=== PATIENT | female | born 1995 | race Caucasian/White ===

== ENCOUNTER 2017-11-08 20:06 | Emergency (ER) | payer SELFPAY ==
--- NOTE | 2017-11-08 22:03 | ER Document Report ---
ED General - General Chief Complaint: Flu Symptoms Stated Complaint: FLU LIKE SYMPTOMS Time Seen by Provider: 11/08/17 21:54 Mode of Arrival: Ambulatory Information source: Patient Notes: 22-year-old female presents to ED as abdominal pain sharp going around to the back. She states she is 21 weeks due March 18 but she has not been to the doctor. Labor and delivery were called they stated we would need to get a definite due date by ultrasound and please get a flu test before sending her up. Ultrasound was called they will call us in about 5 minutes when they are finished with shift change to have the patient go to ultrasound. Flu and hCG will be obtained in the meantime. TRAVEL OUTSIDE OF THE [place] IN LAST 30 DAYS: No - HPI Onset: Other - Abdominal pain is been for about the last hour Onset/Duration: Gradual Quality of pain: Cramping, Sharp Pain Level: 3 Associated symptoms: Body/muscle aches, Nonproductive cough, Fever, Headache, Other - Abdominal pain wrapping around to the back she is 21 weeks Exacerbated by: Movement Relieved by: Denies Similar symptoms previously: Yes Recently seen / treated by doctor: No - Related Data Allergies/Adverse Reactions: amoxicillin Allergy (Verified 11/09/17 00:23) Past Medical History - General Information source: Patient - Social History Smoking Status: Current Every Day Smoker Cigarette use (# per day): Yes - 2- 3 cigarettes a day Chew tobacco use (# tins/day): No Smoking Education Provided: Yes - 4 minutes Frequency of alcohol use: None Drug Abuse: None Lives with: Family Family History: Reviewed & Not Pertinent Patient has suicidal ideation: No Patient has homicidal ideation: No - Past Medical History Cardiac Medical History: Reports: None Pulmonary Medical History: Reports: None EENT Medical History: Reports: None Neurological Medical History: Reports: None Endocrine Medical History: Reports: None Renal/ Medical History: Reports: None Malignancy Medical History: Reports: None GI Medical History: Reports: None Musculoskeltal Medical History: Reports None Skin Medical History: Reports None Psychiatric Medical History: Reports: None Traumatic Medical History: Reports: None Infectious Medical History: Reports: None Past Surgical History: Reports: Hx Adenoidectomy, Hx Oral Surgery, Hx Tonsillectomy - Immunizations Immunizations up to date: Yes Hx Diphtheria, Pertussis, Tetanus Vaccination: Yes Review of Systems - Review of Systems Constitutional: Fever, Recent illness EENT: Nose congestion, Nose discharge, Sinus pressure, Sinus discharge Cardiovascular: No symptoms reported Respiratory: Cough Gastrointestinal: Abdominal pain - She states any 1 weeks Genitourinary: No symptoms reported Female Genitourinary: No symptoms reported Musculoskeletal: Muscle pain - Lower abdominal pain wrapping around to her back she is 21 weeks Skin: No symptoms reported Hematologic/Lymphatic: No symptoms reported Neurological/Psychological: No symptoms reported -: Yes All other systems reviewed and negative Physical Exam - Vital signs Vitals: Temp Pulse Resp BP Pulse Ox 99.0 F 104 H 14 125/66 99 11/08/17 20:39 11/08/17 20:39 11/08/17 20:39 11/08/17 20:39 11/08/17 20:39 Interpretation: Normal - General General appearance: Appears well, Alert - HEENT Head: Normocephalic, Atraumatic Eyes: Normal Pupils: PERRL - Respiratory Respiratory status: No respiratory distress Chest status: Nontender Breath sounds: Normal Chest palpation: Normal - Cardiovascular Rhythm: Regular Heart sounds: Normal auscultation Murmur: No - Abdominal Inspection: Normal Distension: No distension Bowel sounds: Normal Tenderness: Tender - Lower half of the abdomen and lower back Organomegaly: No organomegaly - Back Back: Normal, Nontender - Extremities General upper extremity: Normal inspection, Nontender, Normal color, Normal ROM , Normal temperature General lower extremity: Normal inspection, Nontender, Normal color, Normal ROM , Normal temperature, Normal weight bearing. No: Zaheer's sign - Neurological Neuro grossly intact: Yes Cognition: Normal Orientation: AAOx4 [place] Coma Scale Eye Opening: Spontaneous Denise Coma Scale Verbal: Oriented [place] Coma Scale Motor: Obeys Commands [place] Coma Scale Total: 15 Speech: Normal Motor strength normal: LUE, RUE, LLE, RLE Sensory: Normal - Psychological Associated symptoms: Normal affect, Normal mood - Skin Skin Temperature: Warm Skin Moisture: Dry Skin Color: Normal Course - Re-evaluation Re-evalutation: 11/08/17 22:03 Flu and hCG are being sent to the lab patient will be sent to ultrasound as soon as they are available for definitive age. Labor and delivery will be called when we receive the gestational age and patient will be discharged and sent up to labor and delivery. - Vital Signs Vital signs: Temp Pulse Resp BP Pulse Ox 98.0 F 93 20 115/70 100 11/08/17 23:16 11/08/17 23:16 11/08/17 23:16 11/08/17 23:16 11/08/17 23:16 - Laboratory Result Diagrams: 11/08/17 22:00 Laboratory results interpreted by me: 11/08/17 11/08/17 11/08/17 22:00 22:00 22:06 Hct 35.7 L Seg Neutrophils % 82.7 H Lymphocytes % 8.9 L Beta HCG, Quant 9447.70 H Urine Urobilinogen 4.0 H Discharge - Discharge Clinical Impression: Viral syndrome, Abdominal pain affecting , Back pain affecting Condition: Stable Disposition: HOME, SELF-CARE Additional Instructions: UPPER RESPIRATORY ILLNESS: You have a viral infection of the respiratory passages -- a "cold." This common infection causes nasal congestion, drainage, and often sore throat and cough. It is highly contagious. The disease usually lasts about 10 to 14 days. There is no "cure" for the viral infection -- it must run its course. If there is a complication, such as bacterial infection in the nose, sinuses, middle ear, or bronchial tubes, antibiotics may be required. The antibiotics won't affect the virus. Drink plenty of fluids. A humidifier may help. An expectorant medication or decongestant may make you more comfortable. Use acetaminophen or ibuprofen for fever or aches. See the doctor if fever persists over two days, if there is any significant worsening of your symptoms, or if you simply fail to improve as expected. Viral Syndrome The physician has diagnosed a viral infection. Viruses not only cause "colds," but can cause many different symptoms including generalized aching, fever, headache, cough, diarrhea, nausea, vomiting, and fatigue. The treatment, for the most part, is simply relief of symptoms. This means that antibiotics are usually not given. Rest, fluids, pain medications and, occasionally, medication for the specific symptoms that are most bothersome will be prescribed. Use good handwashing to avoid passing the virus to others. Shared toys should be cleaned with disinfectant. Clean the toilets, sinks, and counter surfaces in bathrooms. Launder clothing in hot water. Contact the physician if you develop any new or unusual symptoms such as severe headache, stiff neck, high fever, chest pain, productive cough, or shortness of breath. You should be rechecked if you don't see marked improvement within seven to 10 days. USE OF ACETAMINOPHEN (Tylenol): Acetaminophen may be taken for pain relief or fever control. It's much safer than aspirin, offering a wider range of "safe" dosages. It is safe during . Some brand names are Tylenol, Panadol, Datril, Anacin 3, Tempra, and Liquiprin. Acetaminophen can be repeated every four hours. The following are maximum recommended dosages: >89 pounds or adults 650 mg to 900 mg Acetaminophen can be repeated every four hours. Maximum dose not to exceed 4000 mg a day. SMOKING: If you smoke, you should stop smoking. The tar and chemicals in cigarette smoke are harmful. Smoking has been shown to cause: emphysema chronic bronchitis lung cancer mouth and throat cancer stomach and pancreas cancer premature aging defects In addition, smoking increases ear and lung infections in children of smokers. You will be discharged from the emergency room then you need to go up to labor and delivery to evaluate her abdominal and back pain. I will give you a copy of your labs to take with you up to labor and delivery FOLLOW-UP CARE: If you have been referred to a physician for follow-up care, call the physician s office for an appointment as you were instructed or within the next two days. If you experience worsening or a significant change in your symptoms, notify the physician immediately or return to the Emergency Department at any time for re-evaluation. Forms: Smoking Cessation Education
[2017-11-08 22:18] LABS: ABSOLUTE LYMPHOCYTES (AUTO) 0.6 10^3/uL (0.5-4.7); ABSOLUTE MONOCYTES (AUTO) 0.5 10^3/uL (0.1-1.4); ABSOLUTE NEUT (AUTO) 5.6 10^3/uL (1.7-8.2); BASOPHILS % (AUTO) 0.3 % (0-2); EOSINOPHILS % (AUTO) 0.4 % (0-6); HEMATOCRIT 35.7 % (36.0-47.0); HEMOGLOBIN 12.3 g/dL (12.0-15.5); LYMPHOCYTES % (AUTO) 8.9 % (13-45); MEAN CORPUSCULAR HEMOGLOBIN 28.9 pg (27.0-33.4); MEAN CORPUSCULAR HGB CONC 34.4 g/dL (32.0-36.0); MEAN CORPUSCULAR VOLUME 84 fl (80-97); MONOCYTES % (AUTO) 7.7 % (3-13); PLATELET COUNT 196 10^3/uL (150-450); RED BLOOD COUNT 4.26 10^6/uL (3.72-5.28); RED CELL DISTRIBUTION WIDTH 13.6 % (11.5-14.0); SEGMENTED NEUTROPHILS % (AUTO) 82.7 % (42-78); TOTAL CELLS COUNTED % (AUTO) 100 %; WHITE BLOOD COUNT 6.8 10^3/uL (4.0-10.5)
[2017-11-08 22:41] LABS: APPEARANCE,URINE SLIGHTLY-CLOUDY; BILIRUBIN,URINE NEGATIVE (NEGATIVE); COLOR,URINE YELLOW; GLUCOSE, URINE NEGATIVE (NEGATIVE); KETONES,URINE NEGATIVE (NEGATIVE); LEUKOCYTE ESTERASE,URINE NEGATIVE (NEGATIVE); NITRITE,URINE NEGATIVE (NEGATIVE); PROTEIN,URINE NEGATIVE (NEGATIVE); URINE SPECIFIC GRAVITY 1.026
[2017-11-08 22:43] LABS: A TYPE INFLUENZA AG NEGATIVE (NEGATIVE); B INFLUENZA AG NEGATIVE (NEGATIVE)
[2017-11-08] MEDS ORDERED: ACETAMINOPHEN 325 MG TABLET PO ONE (23:03)
[2017-11-08 23:18] VITALS: BP 115/70
--- NOTE | 2017-11-08 23:26 | RADIOLOGY REPORT (SQ) ---
EXAM DESCRIPTION: U/S OB 14+ TRNABD 1GES W/O DOP COMPLETED DATE/TIME: 11/08/2017 11:11 pm REASON FOR STUDY: about 21 weeks has not seen md holland pain COMPARISON: None. TECHNIQUE: Limited transabdominal grayscale ultrasound for evaluation of specific requested obstetri vijay parameters. LIMITATIONS: lie and movement. FINDINGS: Live intrauterine with ultrasound composite age of 20 weeks 0 days. EFW 313 g. BRYNN 03/28/2018 CERVICAL LENGTH: 3.0 cm Closed. LVP: 3.7 cm cm. FHR: 160 beats per minute. PRESENTATION: Breech OTHER: bowel appears mildly echogenic. Limited evaluation of anatomy. Nonvisualized mat ernal ovaries. IMPRESSION: Live intrauterine with ultrasound composite age of 20 weeks 0 days. bowel appears mildly echogenic, consider maternal medicine evaluation. Limited evaluatio n of anatomy. Trimester of : Second trimester - 13 weeks 1 day to 27 weeks 6 days. TECHNICAL DOCUMENTATION: JOB ID: [id number] [id number] 2010 [employer] ([employer] All Rights Reserved
== END 2017-11-08 23:18 | disposition home or self-care (01) ==
LOC: ER 20:06
DX: O98.512 Other viral diseases complicating pregnancy, second trimester (principal); B34.9 Viral infection, unspecified; O26.92 Pregnancy related conditions, unspecified, second trimester; M54.9 Dorsalgia, unspecified; R10.9 Unspecified abdominal pain; M79.1 Myalgia; R05 Cough; O09.32 Supervision of pregnancy with insufficient antenatal care, second trimester; Z3A.20 20 weeks gestation of pregnancy; Z88.0 Allergy status to penicillin
CPT/HCPCS: 36415; 76805; 81001; 84702; 85025; 86900; 86901; 87804; 99284; 99406

== ENCOUNTER 2017-11-08 23:22 | Outpatient (CLI) | payer SELFPAY ==
[2017-11-08] MEDS ORDERED: RINGERS SOLUTION,LACTATED 1,000 ML IV PRN (23:32)
[2017-11-08] MEDS ORDERED: RINGERS SOLUTION,LACTATED 1,000 ML IV ONE (23:32)
[2017-11-09 00:27] LABS: ALANINE AMINOTRANSFERASE 24 U/L (9-52); ALBUMIN 4.2 g/dL (3.5-5.0); ALKALINE PHOSPHATASE 80 U/L (38-126); ANION GAP 11 (5-19); ASPARTATE AMINO TRANSFERASE 17 U/L (14-36); BILIRUBIN,DIRECT 0.1 mg/dL (0.0-0.4); BILIRUBIN,TOTAL 0.3 mg/dL (0.2-1.3); BLOOD UREA NITROGEN 4 mg/dL (7-20); CALCIUM 9.8 mg/dL (8.4-10.2); CARBON DIOXIDE 21 mmol/L (22-30); CHLORIDE 104 mmol/L (98-107); GLUCOSE 87 mg/dL (75-110); POTASSIUM 3.8 mmol/L (3.6-5.0); SODIUM 135.8 mmol/L (137-145); TOTAL PROTEIN 6.7 g/dL (6.3-8.2)
[2017-11-09 04:01] LABS: CHLAM PCR NOT DETECTED (NOT DETECT); GON PCR NOT DETECTED (NOT DETECT)
[2017-11-10 06:39] LABS: HEPATITIS C VIRUS AB 0.1 s/co ratio (0.0-0.9)
[2017-11-10 07:04] LABS: HEPATITS B SURFACE ANTIGEN Negative (Negative)
== END 2017-11-09 01:49 | disposition home or self-care (01) ==
LOC: LC 23:22
PROVIDERS: ATTEND Obstetrics & Gynecology
PROC: 4A1HXCZ Monitoring of Products of Conception, Cardiac Rate, External Approach (ICD-10-PCS; principal; 2017-11-08)
DX: O99.282 Endocrine, nutritional and metabolic diseases complicating pregnancy, second trimester (principal); E86.0 Dehydration; O26.892 Other specified pregnancy related conditions, second trimester; R10.9 Unspecified abdominal pain; R05 Cough; Z3A.20 20 weeks gestation of pregnancy
CPT/HCPCS: 36415; 80053; 86592; 86701; 86803; 86804; 87340; 87491; 87591

== ENCOUNTER → 2018-02-22 | Outpatient (CLI) | payer SELFPAY ==
--- NOTE | 2018-02-22 14:34 | RADIOLOGY REPORT (SQ) ---
EXAM DESCRIPTION: U/S OB 14+ TRNABD 1GES W/O DOP COMPLETED DATE/TIME: 02/22/2018 1:55 pm REASON FOR STUDY: ENCTR FOR SUPERVISION OF OTHER NORMAL 3RD TRIMESTER (Z34.83) Z34.83 ENC OUNTER FOR SUPRVSN OF NORMAL , THIRD TRIM COMPARISON: OB ultrasound 11/08/2017 TECHNIQUE: Static and Dynamic grayscale imaging performed of gravid uterus using transabdominal appr oach. Additional selected color Doppler and spectral images recorded. All stored on PACS. LIMITATIONS: None. FINDINGS: EGA: By today's measurements, 33 weeks 0 days (should be 36 weeks 4 days as estimated by measurements from ultrasound 11/08/2017 BRYNN: By today's measurements, an EDC is 04/12/2018 (was estimated as 03/18/2018 by measurements from u ltrasound 11/08/2017). EFW: 1,892 grams PERCENTILE: Not calculated LARRY: Largest pocket 6 cm PLACENTA: Anterior GRADE: I PRESENTATION: Cephalic. ANATOMY: HEART RATE: 139 beats per minute. FOUR CHAMBER HEART: Visualized. THREE VESSEL CORD: Yes. CORD INSERTION: Not well seen KIDNEYS AND BLADDER: Visualized. Appear normal. STOMACH: Visualized. Appears normal. SPINE: Normal as visualized. BRAIN AND LATERAL VENTRICLES: Visualized. Appear normal. OTHER: No other significant finding. MATERNAL ADNEXA: Maternal ovaries not visualized. CERVICAL LENGTH: 3.5 cm in length Closed. OTHER: No other significant finding. IMPRESSION: LIVING INTRAUTERINE . ESTIMATED GESTATIONAL AGE by today's measurements is 33 weeks 0 days. There is evidence of IUGR, abd ominal circumference measurements lag behind biparietal diameter and head circumference by 3 to 4 wee ks. Trimester of : Second trimester - 13 weeks 1 day to 27 weeks 6 days. TECHNICAL DOCUMENTATION: JOB ID: [id number] [employer]- All Rights Reserved Reading location - IP/workstation name: [email or web address]
== END ==
LOC: RAD 12:44
PROVIDERS: ATTEND Nurse Practitioner Women's Health
DX: Z34.83 Encounter for supervision of other normal pregnancy, third trimester (principal)
CPT/HCPCS: 76805

== ENCOUNTER 2018-03-12 22:33 | Outpatient (CLI) | payer MEDICAID ==
[2018-03-12 23:15] LABS: APPEARANCE,URINE SLIGHTLY-CLOUDY; BILIRUBIN,URINE NEGATIVE (NEGATIVE); COLOR,URINE YELLOW; GLUCOSE, URINE NEGATIVE (NEGATIVE); KETONES,URINE NEGATIVE (NEGATIVE); LEUKOCYTE ESTERASE,URINE TRACE (NEGATIVE); NITRITE,URINE NEGATIVE (NEGATIVE); PROTEIN,URINE NEGATIVE (NEGATIVE); URINE SPECIFIC GRAVITY 1.016; UROBILINOGEN,URINE NEGATIVE mg/dL (<2.0)
[2018-03-12 23:31] LABS: URINE AMPHETAMINES SCREEN NEGATIVE; URINE BARBITURATES SCREEN NEGATIVE; URINE BENZODIAZEPINES SCREEN NEGATIVE; URINE COCAINE SCREEN NEGATIVE; URINE MARIJUANA (THC) SCREEN NEGATIVE; URINE METHADONE SCREEN NEGATIVE; URINE PHENCYCLIDINE SCREEN NEGATIVE
--- NOTE | 2018-03-14 06:17 | Non Stress Test Report ---
Non Stress Test Datetime Report Generated by CPN: 03/14/2018 06:17 DEMOGRAPHIC EGA NST: 39.1 INDICATION Indication for Study: Other Indication for Study (NST) Other: LC URINE RESULTS Urine Protein, NST: Negative Urine Ketones - NST: Negative Urine Glucose - NST: Negative Urine Blood - NST: Negative MONITORING Monitor Explained: Monitor Explained; Test Explained; Patient Verbalized Understanding Time on Monitor: 03/12/2018 23:02 Time off Monitor: 03/13/2018 00:29 NST Duration: 87 NST INTERVENTIONS NST Interventions: PO Hydration; Reposition Patient Physician Notified NST: Dr. Carrillo-Joshua BABY A: [id number] BABY A Movement : Present Contraction Frequency : iregg FHR Baseline : 125 Accelerations : 15X15 Decelerations : None Variability : Moderate 6-25bpm NST Review: Meets Criteria for Reactive NST NST Review and Verified By : panda collazo rn NST Results: Reactive NST REPORT Report Trigger: Send Report
--- NOTE | 2018-03-14 09:15 | Admission Physical ---
Datetime Report Generated by CPN: 03/14/2018 09:15 CURRENT ADMISSION Hx Assessment: The History has been Reviewed and is Current Chief Complaint: Scheduled Induction of Labor Indication for Induction: IUGR Indication for Induction- Other: Severe Admit Impression : Term, Intrauterine ; No Active Labor; Intact Membranes; Induction of Labor Admit Plan: Admit to Unit; Initiate Labor Induction Protocol ALLERGIES Medication Allergies: Yes Medication Allergies: amoxicillin/CT/thrush (03/12/2018) Latex: No Latex Allergies Food Allergies: N/A Environmental Allergies: N/A OBSTETRICAL HISTORY EDC: 03/18/2018 00:00 : 2 Para: 1 Term: 1 : 0 SAB: 0 IAB: 0 Ectopic: 0 Livin Cesareans: 0 VBACs: 0 Multiple Births: 0 Gestational Diabetes: No Rh Sensitization: No Incompetent Cervix: No LYDIA: No Infertility: No ART Treatment: No Uterine Anomaly: No IUGR: Yes Hx Previous C/S: No Macrosomia: No Hx Loss/Stillborn: No PIH: No Hx : No Placenta Previa/Abruption: No Depression/PP Depression: No PTL/PROM: No Post Hemorrhage: No Current Procedures: Ultrasound Obstetrical History Comments: G1- 7lb baby boy 2014 G2- current sees MFM for baby being severely IUGR 2%. Late to care @ 35 weeks. First U/S at 21 weeks at [facility] SEE RECORDS Alcohol: No Marijuana : No Cocaine: No Other Illicit Drugs: No Cigarettes: Light Tobacco Smoker. [id number] MEDICAL HISTORY Diabetes: No Blood Transfusion: No Pulmonary Disease (Asthma, TB): No Breast Disease: No Hypertension: No Maintenance Department Manager Surgery: No Heart Disease: No Hosp/Surgery: Yes Autoimmune Disorder: No Anesthetic Complications: No Kidney Disease: No Abnormal Pap Smear: No Neuro/Epilepsy: No Psychiatric Disorders: No Other Medical Diseases: No Hepatitis/Liver Disease: No Significant Family History: No Varicosities/Phlebitis: No Trauma/Violence : No Thyroid Dysfunction: No Medical History Comments: tonsillectomy, x1 INFECTIOUS HISTORY Gonorrhea: No Genital Herpes: No Chlamydia: No Tuberculosis: No Syphilis: No Hepatitis: No HIV/AIDS Exposure: No Rash or Viral Illness: No HPV: No PHYSICAL EXAM General: Normal HEENT: Deferred Neurologic: Normal Thyroid: Normal Heart: Normal Lungs: Normal Breast: Deferred Back: Normal Abdomen: Normal Genitourinary Exam: Normal Extremities: Normal DTRs: Normal Pelvic Type: Adequate Physical Exam Comments: IUGR RH neg, late to care 03-01-18 Obesity GBS + Pelvis proven 7-3 [facility] 11-08-17 = 20 weeks [facility] 02-22-18 = 36+4, measuring 33 weeks, 3 weeks 4 days behind MFM 02-23-18 =Delivery at 39 weeks Vital Signs: Reviewed MEMBRANES Membranes: Intact FETUS A EGA: 39.3 Monitoring: External US FHR- Baseline: 140 Variability: Moderate 6-25bpm Decelerations: None FHR Category: Category I Estimated Weight (gm): 2179 Presentation: Vertex Admit Comment: Admited to LD for IOL for IUGR, late care, seen my MFM x 1, 3 week lag, EFW 4-13, AC < 1 % GBS += will start Pitocin and VE after 4 hours, Cat 1 strip PLANS FOR LABOR AND DELIVERY Labor and Delivery: None Pain Management: Natural Feeding Preference: Breast Benefit of Breast Feed Discussed: Yes Circumcision: N/A INFORMED CONSENT Assignment: Joe Siu MD Signature: with User ID: Josie, Addendum/Amendment: pt states she is not allergic to Penicillin, it only gives her thrush : with User ID: Josie, Addendum/Amendment: pt states she is not allergic to Penicillin, it only gives her thrush
--- NOTE | 2018-03-14 13:34 | L&D Progress Notes ---
PROGRESS NOTES Datetime Report Generated by CPN: 03/14/2018 13:33 PROGRESS NOTE Comment: resting, irreg uc's, Cat 1 strip MEMBRANES Membranes: Intact FETUS A : 39.3 Estimated Weight (gm): 2179 Presentation: Vertex SIGNATURE SIGNATURE: ,[id number];,[id number];,[id number] SIGNATURE: ,[id number] SIGNATURE: [id number] Assignment: Joe Siu MD Signature: with User ID: [email or web address] : with User ID: [email or web address]
--- NOTE | 2018-03-14 16:40 | L&D Progress Notes ---
PROGRESS NOTES Datetime Report Generated by CPN: 03/14/2018 16:40 PROGRESS NOTE Impression: Normal Progression of Labor; Reassuring Heart Rate Procedures: Scalp Electrode; Sterile Vag Exam Plan: Continue Present Management Plan Other: Pit off Informed Consent Obtained: Vaginal Delivery Vital Signs : Reviewed; Within Normal Limits Comment: VE= 8-9/100/vtx/0-+ 1 Out of control with uc's, FSE applied, unable to place IUPC early and variable decels FETUS C SIGNATURE: 13,[id number];14,[id number];[id number] Assignment: Joe Siu MD Signature: with User ID: [email or web address] : with User ID: [email or web address]
== END 2018-03-13 01:13 | disposition home or self-care (01) ==
LOC: LC 22:33
PROVIDERS: ATTEND Obstetrics & Gynecology
PROC: 4A1HXCZ Monitoring of Products of Conception, Cardiac Rate, External Approach (ICD-10-PCS; principal; 2018-03-12)
DX: O36.5930 Maternal care for other known or suspected poor fetal growth, third trimester, not applicable or unspecified (principal); O09.33 Supervision of pregnancy with insufficient antenatal care, third trimester; O47.1 False labor at or after 37 completed weeks of gestation; Z3A.39 39 weeks gestation of pregnancy
CPT/HCPCS: 59025; 80307; 81005

== ENCOUNTER 2018-03-14 08:16 | Inpatient (IN) | payer MEDICAID ==
[2018-03-14] MEDS ORDERED: OXYTOCIN/NORMAL SALINE 40 UNIT/2,000 ML RTUINJ ONE (08:43)
[2018-03-14] MEDS ORDERED: PENICILLIN G-K 5 MILLION UNIT VIAL ONE ×3 (08:43→16:49)
[2018-03-14] MEDS ORDERED: LIDOCAINE 1% INJ-PF (10 MG/ML) 30 ML SDV ONE (08:43)
[2018-03-14] MEDS ORDERED: MISOPROSTOL 0.2 MG TABLET ONE (08:43)
[2018-03-14] MEDS ORDERED: OXYTOCIN/NORMAL SALINE 20 UNIT/1,000 ML RTUINJ IV PRN ×2 (08:52→17:25)
[2018-03-14] MEDS ORDERED: RINGERS SOLUTION,LACTATED 1,000 ML IV PRN (08:52)
[2018-03-14] MEDS ORDERED: RINGERS SOLUTION,LACTATED 1,000 ML IV ONE (08:52)
[2018-03-14] MEDS ORDERED: RINGERS SOLUTION,LACTATED 300 ML IV ONE (08:52)
[2018-03-14] MEDS ORDERED: AMPICILLIN SODIUM 2 GM in NORMAL SALINE 100 ML IV ONE (08:52)
[2018-03-14 09:54] LABS: HEMATOCRIT 32.1 % (36.0-47.0); MEAN CORPUSCULAR HEMOGLOBIN 27.7 pg (27.0-33.4); MEAN CORPUSCULAR HGB CONC 34.4 g/dL (32.0-36.0); MEAN CORPUSCULAR VOLUME 81 fl (80-97); PLATELET COUNT 190 10^3/uL (150-450); RED BLOOD COUNT 3.98 10^6/uL (3.72-5.28); RED CELL DISTRIBUTION WIDTH 14.3 % (11.5-14.0); WHITE BLOOD COUNT 8.3 10^3/uL (4.0-10.5)
[2018-03-14 10:13] LABS: URINE AMPHETAMINES SCREEN NEGATIVE; URINE BARBITURATES SCREEN NEGATIVE; URINE BENZODIAZEPINES SCREEN NEGATIVE; URINE COCAINE SCREEN NEGATIVE; URINE MARIJUANA (THC) SCREEN NEGATIVE; URINE METHADONE SCREEN NEGATIVE; URINE PHENCYCLIDINE SCREEN NEGATIVE
[2018-03-14 10:45] LABS: APPEARANCE,URINE CLOUDY; BILIRUBIN,URINE NEGATIVE (NEGATIVE); GLUCOSE, URINE NEGATIVE (NEGATIVE); KETONES,URINE NEGATIVE (NEGATIVE); LEUKOCYTE ESTERASE,URINE LARGE (NEGATIVE); NITRITE,URINE NEGATIVE (NEGATIVE); PROTEIN,URINE 30 mg/dL (NEGATIVE); URINE SPECIFIC GRAVITY 1.023
[2018-03-14 10:48] LABS: COLOR,URINE DARK YELLOW
[2018-03-14] MEDS ORDERED: AMPICILLIN SODIUM 1 GM in NORMAL SALINE 50 ML IV SCH (12:54)
[2018-03-14] MEDS ORDERED: PENICILLIN G POTASSIUM 2,500,000 UNIT in DEXTROSE 5%-WATER 50 ML IV SCH (13:26)
[2018-03-14] MEDS ORDERED: METHYLERGONOVINE MALEATE INJ/PF 0.2 MG/1 ML AMPULE ONE (17:15)
[2018-03-14] MEDS ORDERED: METHYLERGONOVINE MALEATE INJ/PF 0.2 MG/1 ML AMPULE IM PRN (17:25)
[2018-03-14] MEDS ORDERED: DIPHENHYDRAMINE HCL 25 MG CAPSULE PO PRN (17:25)
[2018-03-14] MEDS ORDERED: PROMETHAZINE HCL 25 MG TABLET PO PRN (17:25)
[2018-03-14] MEDS ORDERED: DIBUCAINE 1% OINTMENT 28 GM TP PRN (17:25)
[2018-03-14] MEDS ORDERED: MAGNESIUM HYDROXIDE SUSP 30 ML UDCUP PO PRN (17:25)
[2018-03-14] MEDS ORDERED: ACETAMINOPHEN WITH CODEINE #3 TABLET PO PRN ×2 (17:25)
[2018-03-14] MEDS ORDERED: PROMETHAZINE HCL 25 MG SUPP.RECT PR PRN (17:25)
[2018-03-14] MEDS ORDERED: NA PHOS,M-B/NA PHOS,DI-BA (ADULT) 133 ML ENEMA PR PRN (17:25)
[2018-03-14] MEDS ORDERED: MEASLES,MUMPS&RUBELLA VACC/PF 0.5 ML VIAL SUBCUT PRN (17:25)
[2018-03-14] MEDS ORDERED: PROMETHAZINE HCL INJ 25 MG/1 ML VIAL IV PRN (17:25)
[2018-03-14] MEDS ORDERED: BENZOCAINE/MENTHOL AEROSOL SPRAY 56 ML TOP PRN (17:25)
[2018-03-14] MEDS ORDERED: ACETAMINOPHEN 650 MG SUPP.RECT PR PRN (17:25)
[2018-03-14] MEDS ORDERED: MISOPROSTOL 0.2 MG TABLET PR PRN (17:25)
[2018-03-14] MEDS ORDERED: PSEUDOEPHEDRINE HCL 30 MG TABLET PO PRN (17:25)
[2018-03-14] MEDS ORDERED: DIPH/PERTUSS(ACELL)/TETANUS VAC/PF 0.5 ML SYR (>=10YO) IM PRN (17:25)
[2018-03-14] MEDS ORDERED: GLYCERIN/WITCH HAZEL LEAF 1 EACH MED..PAD TP PRN (17:25)
[2018-03-14] MEDS ORDERED: FERROUS SULFATE 325 MG TABLET PO SCH (18:00)
[2018-03-14] MEDS ORDERED: ACETAMINOPHEN 325 MG TABLET ONE (18:07)
[2018-03-14] MEDS ORDERED: IBUPROFEN 800 MG TABLET ONE ×2 (18:10→20:31)
[2018-03-14] MEDS ORDERED: FAMOTIDINE 20 MG TABLET ONE (23:57)
[2018-03-14] MEDS: FAMOTIDINE 20 MG TABLET PO SCH (23:59)
[2018-03-15] MEDS ORDERED: IBUPROFEN 800 MG TABLET ONE (05:53)
[2018-03-15] MEDS: IBUPROFEN 800 MG TABLET PO SCH ×3 (05:58→21:47)
[2018-03-15 07:29] LABS: HEMATOCRIT 29.7 % (36.0-47.0); HEMOGLOBIN 10.1 g/dL (12.0-15.5); MEAN CORPUSCULAR HEMOGLOBIN 27.5 pg (27.0-33.4); MEAN CORPUSCULAR HGB CONC 33.8 g/dL (32.0-36.0); MEAN CORPUSCULAR VOLUME 81 fl (80-97); PLATELET COUNT 193 10^3/uL (150-450); RED BLOOD COUNT 3.66 10^6/uL (3.72-5.28); RED CELL DISTRIBUTION WIDTH 14.2 % (11.5-14.0); WHITE BLOOD COUNT 12.8 10^3/uL (4.0-10.5)
[2018-03-15] MEDS: DOCUSATE SODIUM 100 MG CAPSULE PO SCH ×3 (09:00→17:32)
[2018-03-15] MEDS: PRENATAL VITAMIN W DHA CAPSULE PO SCH (09:19)
[2018-03-15] MEDS: FAMOTIDINE 20 MG TABLET PO SCH ×2 (09:20→21:47)
[2018-03-15] MEDS ORDERED: SENNOSIDES/DOCUSATE 8.6-50 MG 1 EACH TABLET PO SCH (10:00)
--- NOTE | 2018-03-15 10:26 | PDOC PROGRESS REPORT ---
Subjective-OB Progress Note for:: 03/15/18 Subjective: s/p day #1 Pt denies concerns, voiding without difficulty, lochia is stable, pain well controlled, bonding with baby. Physical Exam (OB) Vital Signs: Temp Pulse Resp BP Pulse Ox 97.9 F 54 L 18 94/69 L 100 03/15/18 08:13 03/15/18 08:13 03/15/18 08:13 03/15/18 08:13 03/15/18 08:13 Intake & Output 03/14/18 03/15/18 03/16/18 06:59 06:59 06:59 Weight 110.4 kg - PIH/Pre-Eclampsia DTR's: 2 + Clonus: Negative Headache: Absent Epigastric Pain: No Visual Changes: No - Lochia Lochia Amount: Small 10-25 ml Lochia Color: Rubra/Red - Abdomen Description: Soft Hernia Present: No Fundal Description: Firm Fundal Height: u/u - u/2 Objective-Diagnostic Laboratory: 03/15/18 07:10 03/14/18 03/14/18 03/15/18 08:45 09:33 07:10 WBC 12.8 H RBC 3.66 L Hgb 10.1 L Hct 29.7 L MCV 81 MCH 27.5 MCHC 33.8 RDW 14.2 H Plt Count 193 Urine Color DARK YELLOW Urine Appearance CLOUDY Urine pH 6.0 Ur Specific [place] 1.023 Urine Protein 30 H Urine Glucose (UA) NEGATIVE Urine Ketones NEGATIVE Urine Blood NEGATIVE Urine Nitrite NEGATIVE Ur Leukocyte Esterase LARGE H Blood Type O NEGATIVE Antibody Screen POSITIVE Assessment and Plan(PN) - Assessment and Plan (1) Delivery normal Is this a current diagnosis for this admission?: Yes Plan: routine pp care (2) GBS (group B Streptococcus carrier), +RV culture, currently Is this a current diagnosis for this admission?: Yes Plan: monitor baby (3) Intrauterine growth restriction (IUGR) affecting care of mother, third trimester, single gestation Is this a current diagnosis for this admission?: Yes Plan: monitor baby (4) Late care Is this a current diagnosis for this admission?: Yes Plan: routine pp care - Time Spent with Patient Time with patient: Less than 15 minutes Critical Time spent with patient: Less than 15 minutes Medications reviewed and adjusted accordingly: Yes - Disposition Anticipated Discharge: Home Within: within 24 hours
--- NOTE | 2018-03-15 11:41 | Delivery Summary ---
Del Sum A-C Datetime Report Generated by CPN: 03/15/2018 11:40 DELIVERY PERSONNEL DELIVERY PERSONNEL: [id number] Delivery Doctor:: Kia Lopez CNM Labor and Delivery Nurse:: Lenora Alvarez RNgeropsychologist Nurse:: Joshua Steele RN Nursery Nurse:: Taya Gonzalez RN Chain Saw Driver/DISTILLERY WORKER GENERAL: Phong Masterson CST Chain Saw Driver/DISTILLERY WORKER GENERAL: Jacklyn Power CNA II MATERNAL INFORMATION Delivery Anesthesia: None Medications After Delivery: Pitocin Drip 20 Units/1000ml NSS; Methergine 0.2mg IM Meds After Delivery Comment: 1000 cytotec Maternal Complications: None Provider Comments: viable female from [place] to OA over intact perineum, placed on mothers abd, cord clamped and cut after 2 minutes, Spont delivery of grossly normal intact placenta, 3 VC, uterine atony resolved with massage, Pitocin IV, Cytotec 1000mcg via rectum Baby and mom remains in recovery in stable condition, FFFM, Mom and GGM bonding with baby, cord blood to lab LABOR SUMMARY EDC: 03/18/2018 00:00 No. Babies in Womb: 1 Attempted: No Labor Anesthesia: None LABOR INFORMATION Reason for Induction: Intrauterine Growth Retardation Onset of Labor: 03/14/2018 16:30 Complete Dilatation: 03/14/2018 16:57 Oxytocin: Induction Group B Beta Strep: positive Antibiotics # of Doses: 3 Antibiotics Time of Last Dose: 623 Name of Antibiotic Given: Penicillin Steroids Given: None Reason Steroids Not Administered: Not Applicable MEMBRANES Membranes Rupture Method: Artificial Rupture of Membranes: 03/14/2018 16:35 Length of Rupture (hr): 0.50 Amniotic Fluid Color: Clear Amniotic Fluid Amount: Small Amniotic Fluid Odor: Normal STAGES OF LABOR Stage 1 hr: 0 Stage 1 min: 27 Stage 2 hr: 0 Stage 2 min: 8 Stage 3 hr: 0 Stage 3 min: 4 Total Time in Labor hr: 0 Total Time in Labor min: 39 VAGINAL DELIVERY Episiotomy: None Laceration #1: None Laceration Extension #1: N/A Laceration Repair: Not Applicable Sponge Count Correct: N/A Sharps Count Correct: N/A CSECTION DELIVERY Primary Indication: N/A Secondary Indication: N/A CSection Incidence: N/A Labor: N/A Elective: N/A CSection Incision: N/A BABY A INFORMATION Infant Delivery Date/Time: 03/14/2018 17:05 Method of Delivery: Vaginal Born in Route : No : N/A Forceps: N/A Vacuum Extraction: N/A Shoulder Dystocia : No PRESENTATION/POSITION BABY A Presentation: Cephalic Cephalic Presentation: Vertex Vertex Position: Left Occipital Anterior Breech Presentation: N/A PLACENTA INFORMATION BABY A Placenta Delivery Time : 03/14/2018 17:09 Placenta Method of Delivery: Spontaneous Placenta Status: Delivered SCORES BABY A Heart Rate 1 min: >100 bpm Resp Effort 1 min: Good Cry Reflex Irritability 1 min: Cough or Sneeze or Pulls Away Muscle Tone 1 min: Active Motion Color 1 min: Blue/Pale Resuscitation Effort 1 min: Tactile Stimulation SCORE 1 MIN: 8 Heart Rate 5 min: >100 bpm Resp Effort 5 min: Good Cry Reflex Irritability 5 min: Cough or Sneeze or Pulls Away Muscle Tone 5 min: Active Motion Color 5 min: Body [place], Extremities Blue SCORE 5 MIN: 9 INFANT INFORMATION BABY A Gestational Age at Delivery: 39.3 Gestational Status: Full Term- 39- 40.6 Weeks Outcome : Liveborn Condition : Stable Infant Sex: Female IDENTIFICATION BABY A Infant Verification Date/Time: 03/14/2018 17:27 ID Band Number: [id number] Mother's Name Verified: Yes RN Verifying Infant: Scooter Alvarez, RN, A. Prakash, DISTILLERY WORKER GENERAL WEIGHT/LENGTH BABY A Birthweight (gm): 2090 Weight (lb): 4 Infant Weight (oz): 10 Length (in): 18.50 Length (cm): 46.99 CORD INFORMATION BABY A No. Cord Vessels: 3 Nuchal Cord : N/A Cord Blood Taken: Yes-For Eval (Mom's Blood Type - or O+) Infant Suction: Mouth; Nose ASSESSMENT BABY A Infant Complications: None Physical Findings at Delivery: Within Normal Limits Respirations: Appears Normal Skin to Skin: Yes Skin to Skin Time (min): 60 Body Artist/ALS Called : No Infant Care By: Sasha Gonzalez RN BABY B INFORMATION : N/A
[2018-03-16] MEDS: IBUPROFEN 800 MG TABLET PO SCH ×2 (05:41→13:11)
[2018-03-16 09:09] VITALS: BP 107/63
[2018-03-16] MEDS: FAMOTIDINE 20 MG TABLET PO SCH (09:44)
[2018-03-16] MEDS: PRENATAL VITAMIN W DHA CAPSULE PO SCH (09:44)
[2018-03-16] MEDS: DOCUSATE SODIUM 100 MG CAPSULE PO SCH ×2 (09:44→18:23)
--- NOTE | 2018-03-16 12:40 | PDOC DISCHARGE SUMMARY ---
Final Diagnosis Discharge Date: 03/16/18 - Final Diagnosis (1) GBS (group B Streptococcus carrier), +RV culture, currently Is this a current diagnosis for this admission?: Yes (2) Late care Is this a current diagnosis for this admission?: Yes (3) Intrauterine growth restriction (IUGR) affecting care of mother, third trimester, single gestation Is this a current diagnosis for this admission?: Yes (4) Delivery normal Is this a current diagnosis for this admission?: Yes Discharge Data - Discharge Medication Prescriptions: Ibuprofen [Motrin 800 mg Tablet] 800 mg PO Q8HP PRN #30 tablet PRN Reason: Abdominal Cramping Docusate Sodium [Colace 100 mg Capsule] 100 mg PO BID #60 capsule Ferrous Sulfate [Feosol 325 mg Tablet] 325 mg PO BID #60 tablet Home Medications: Prenat 115/Iron Fum/Folic/Dss [ 19 Tablet] 1 tab PO DAILY 11/09/17 Calcium Carbonate [Calcium] 500 mg PO DAILY 03/12/18 Docusate Sodium [Colace 100 mg Capsule] 100 mg PO BID #60 capsule 03/16/18 Ferrous Sulfate [Feosol 325 mg Tablet] 325 mg PO BID #60 tablet 03/16/18 Ibuprofen [Motrin 800 mg Tablet] 800 mg PO Q8HP PRN #30 tablet 03/16/18 Reason(s) for Admission: Induction of Labor, Status - Intrauterine growth restriction, Group B Strep Positive Procedures: NST, Ultrasound Intrapartum Procedure(s): Spontaneous Vaginal Delivery - Diagnosis Test Laboratory: Temp Pulse Resp BP Pulse Ox 97.7 F 64 18 107/63 100 03/16/18 09:07 03/16/18 09:07 03/16/18 09:07 03/16/18 09:07 03/16/18 09:07 03/14/18 03/14/18 03/15/18 08:45 09:33 07:10 RBC 3.98 3.66 L Hgb 11.0 L 10.1 L Hct 32.1 L 29.7 L Urine Opiates Screen NEGATIVE - Discharge information/Instructions Discharge Activity: Activity As Tolerated, Balance Activity w/Rest, No Lifting Over 10 Pounds, No Lifting/Push/Pulling, Pelvic Rest, No tub bath Discharge Diet: As Tolerated, Regular Disposition: HOME, SELF-CARE Follow up with: [facility] in: 4, Weeks
--- NOTE | 2018-04-20 11:49 | PDOC H&P ---
History of Present Illness Admission Date/PCP: 03/14/18 08:16 LOIDA OLMOS MD History of Present Illness: CARLOS FARRAR is a 22 year old female Past Surgical History Past Surgical History: Reports: Adenoidectomy, Tonsillectomy Social History Smoking Status: Never Smoker Family History Family History: Reviewed & Not Pertinent Parental Family History Reviewed: Yes Children Family History Reviewed: No Sibling(s) Family History Reviewed.: No Medication/Allergy Home Medications: Prenat 115/Iron Fum/Folic/Dss [ 19 Tablet] 1 tab PO DAILY 11/09/17 Calcium Carbonate [Calcium] 500 mg PO DAILY 03/12/18 Docusate Sodium [Colace 100 mg Capsule] 100 mg PO BID #60 capsule 03/16/18 Ferrous Sulfate [Feosol 325 mg Tablet] 325 mg PO BID #60 tablet 03/16/18 Ibuprofen [Motrin 800 mg Tablet] 800 mg PO Q8HP PRN #30 tablet 03/16/18 Allergies/Adverse Reactions: amoxicillin Allergy (Mild, Verified 03/14/18 08:55) thrush Physical Exam - Physical Exam Vital Signs: Temp Pulse Resp BP Pulse Ox 97.7 F 64 18 107/63 100 03/16/18 18:51 03/16/18 18:51 03/16/18 18:51 03/16/18 18:51 03/16/18 18:51 Result Laboratory Results: 03/15/18 07:10 Assessment & Plan - Inpatient Certification I certify that my determination is in accordance with my understanding of Medicare's requirements for reasonable and necessary INPATIENT services [42 CFR 412.3e].: Yes - Plan Summary Plan Summary: admitted for IOL for IUGR, pos GBS and late care
== END 2018-03-16 19:40 | disposition home or self-care (01) | DRG 775 ==
LOC: LR 08:16 → 2S 03-15 08:37
PROVIDERS: ADMIT Obstetrics & Gynecology Gynecology; ATTEND Obstetrics & Gynecology Gynecology
PROC: 10E0XZZ Delivery of Products of Conception, External Approach (ICD-10-PCS; principal; 2018-03-14)
DX: O36.5930 Maternal care for other known or suspected poor fetal growth, third trimester, not applicable or unspecified (principal); O99.824 Streptococcus B carrier state complicating childbirth; Z37.0 Single live birth; Z3A.39 39 weeks gestation of pregnancy
CPT/HCPCS: 36415; 80307; 81005; 85027; 85461; 86592; 86850; 86870; 86900; 86901; 88307; J2210; J2540; J2590; J2790; J3490